=== PATIENT | female | born 1960 | race Two or more races ===

== ENCOUNTER 2022-07-04 14:41 | Emergency (ER) | payer MEDICARE | END 2022-07-04 18:05 | disposition left against medical advice (07) | LOC: MW.ED 14:41 | DX: Z53.21 Procedure and treatment not carried out due to patient leaving prior to being seen by health care provider (principal) ==

== ENCOUNTER 2023-02-09 14:50 | Observation (INO) | payer MEDICARE, MEDICAID ==
[2023-02-09] MEDS ORDERED: Sodium Chloride 0.9% 2.5 ML Syringe FLUSH PRN (15:18)
[2023-02-09] MEDS ORDERED: Sodium Chloride 0.9% 10 ML Syringe FLUSH PRN (15:18)
[2023-02-09 15:55] LABS: APPEARANCE,URINE CLEAR; BILIRUBIN,URINE NEGATIVE (NEGATIVE); COLOR,URINE YELLOW; GLUCOSE,URINE NEGATIVE (NEGATIVE); KETONES,URINE NEGATIVE (NEGATIVE); LEUKOCYTE ESTERASE,URINE SMALL (NEGATIVE); NITRITE,URINE NEGATIVE (NEGATIVE); OCCULT BLOOD,URINE NEGATIVE (NEGATIVE); PH,URINE 6.5 (5.0-8.0); PROTEIN,URINE NEGATIVE (NEGATIVE); UROBILINOGEN,URINE 0.2 EU/dL (<2.0)
[2023-02-09 16:04] LABS: AMPHETAMINES SCREEN, URINE NEGATIVE (CUTOFF=500); BARBITURATE SCREEN,URINE NEGATIVE (CUTOFF=200); BENZODIAZEPINES SCREEN,URINE NEGATIVE (CUTOFF=150); BUPRENORPHINE SCREEN,URINE NEGATIVE (CUTOFF=10); METHADONE SCREEN, URINE NEGATIVE (CUTOFF=200); METHAMPHETAMINES SCREEN, URINE NEGATIVE (CUTOFF=500); OXYCODONE SCREEN,URINE NEGATIVE (CUT0FF=100); PCP SCREEN,URINE NEGATIVE (CUTOFF=25); PROPOXYPHENE SCREEN,URINE NEGATIVE (CUTOFF=300); THC SCREEN,URINE 20 NG/ML NEGATIVE (CUTOFF=50)
[2023-02-09 16:13] LABS: BACTERIA,URINE NOT SEEN (NEGATIVE); EPITHELIAL CELLS,URINE FEW (NONE-FEW); RBC,URINE 0-1 (0-2/HPF); WBC,URINE 0-1 (0-5/HPF)
[2023-02-09 16:24] LABS: BASOPHILS ABSOLUTE AUTO 0.1 K/uL (0.0-0.1); BASOPHILS PERCENT AUTO 1.1 % (0.0-1.5); EOSINOPHILS ABSOLUTE AUTO 0.1 K/uL (0.0-0.7); EOSINOPHILS PERCENT AUTO 1.1 % (0.0-7.0); HEMATOCRIT 43.3 % (36.0-46.0); HEMOGLOBIN 14.5 g/dL (12.0-16.0); LYMPHOCYTES ABSOLUTE AUTO 1.6 K/uL (0.6-2.4); LYMPHOCYTES PERCENT AUTO 33.3 % (16.0-40.0); MEAN CORPUSCULAR HEMOGLOBIN 30.7 pg (27.0-32.0); MEAN CORPUSCULAR HGB CONC 33.5 g/dL (31.0-37.0); MEAN CORPUSCULAR VOLUME 91.5 fL (80.0-98.0); MONOCYTES ABSOLUTE AUTO 0.2 K/uL (0.0-0.8); MONOCYTES PERCENT AUTO 4.9 % (0.0-15.0); NEUTROPHILS ABSOLUTE AUTO 2.8 K/uL (1.4-5.7); NEUTROPHILS PERCENT AUTO 59.6 % (48.0-80.0); NRBC ABSOLUTE 0 K/uL; PLATELET COUNT,PLT 175 K/uL (150-400); RED BLOOD CELL COUNT 4.73 M/uL (4.30-5.90); WHITE BLOOD CELL COUNT,WBC 4.74 K/uL (4.0-11.0)
[2023-02-09 16:34] LABS: INR < 0.93 (0.86-1.11)
[2023-02-09 16:58] LABS: A/G RATIO 1.1 (0.9-1.6); ALANINE AMINOTRANSFERASE,ALT 25 IU/L (14-63); ALBUMIN 3.7 g/dL (3.4-5.0); ALKALINE PHOSPHATASE 109 U/L (46-116); ASPARTATE AMNIOTRANSFERASE,AST 19 IU/L (15-37); BILIRUBIN TOTAL 0.2 mg/dL (0.2-1.0); BLOOD UREA NITROGEN,BUN 12 mg/dL (7.0-18.0); CARBON DIOXIDE,CO2 29.2 mmol/L (21.0-32.0); CHLORIDE,CL 105 mmol/L (98-107); CREATININE 0.7 mg/dL (0.6-1.0); EST CRCL DRUG DOSING (CG) 66.75 mL/min; GLUCOSE RANDOM 96 mg/dL (74-106); POTASSIUM,K 4.1 mmol/L (3.5-5.1); SODIUM,NA 143 mmol/L (136-145)
[2023-02-09 17:00] LABS: ESTIMATED GFR 98 mL/min (>60); ETHANOL BLOOD MEDICAL < 3.0 mg/dL
[2023-02-09 17:04] LABS: LACTIC ACID 1.5 mmol/L (0.4-2.0)
[2023-02-09] MEDS ORDERED: Iopamidol 755 Mg/ML 100 ML Bottle IVPUSH ONE (17:54)
[2023-02-09] MEDS ORDERED: Divalproex Sodium Delayed-Release 500 MG Tab.CR PO ONE (18:32)
[2023-02-09] MEDS ORDERED: traMADol 50 MG Tab PO ONE (21:29)
[2023-02-10] MEDS ORDERED: Acetaminophen 325 MG Tab PO PRN (00:27)
[2023-02-10 05:58] LABS: BASOPHILS PERCENT AUTO 0.5 % (0.0-1.5); EOSINOPHILS ABSOLUTE AUTO 0.1 K/uL (0.0-0.7); HEMATOCRIT 39.4 % (36.0-46.0); HEMOGLOBIN 13.1 g/dL (12.0-16.0); LYMPHOCYTES ABSOLUTE AUTO 2.5 K/uL (0.6-2.4); LYMPHOCYTES PERCENT AUTO 44.6 % (16.0-40.0); MEAN CORPUSCULAR HEMOGLOBIN 30.6 pg (27.0-32.0); MEAN CORPUSCULAR HGB CONC 33.2 g/dL (31.0-37.0); MEAN CORPUSCULAR VOLUME 92.1 fL (80.0-98.0); MONOCYTES ABSOLUTE AUTO 0.3 K/uL (0.0-0.8); MONOCYTES PERCENT AUTO 5.2 % (0.0-15.0); NEUTROPHILS ABSOLUTE AUTO 2.7 K/uL (1.4-5.7); NEUTROPHILS PERCENT AUTO 47.7 % (48.0-80.0); NRBC ABSOLUTE 0 K/uL; PLATELET COUNT,PLT 169 K/uL (150-400); RED BLOOD CELL COUNT 4.28 M/uL (4.30-5.90); WHITE BLOOD CELL COUNT,WBC 5.56 K/uL (4.0-11.0)
[2023-02-10 06:31] LABS: CALCIUM 8.3 mg/dL (8.5-10.1); CARBON DIOXIDE,CO2 30.3 mmol/L (21.0-32.0); CREATININE 0.8 mg/dL (0.6-1.0); EST CRCL DRUG DOSING (CG) 58.41 mL/min
[2023-02-10] MEDS ORDERED: Divalproex Sodium Delayed-Release 250 MG Tab.CR PO SCH (09:00)
== END 2023-02-10 11:45 | disposition home or self-care (01) ==
LOC: MW.ED 14:50 → MW.MS 19:29
PROVIDERS: ADMIT Internal Medicine; ATTEND Internal Medicine
DX: H54.62 Unqualified visual loss, left eye, normal vision right eye (principal); R56.9 Unspecified convulsions; Z79.899 Other long term (current) drug therapy; Z98.890 Other specified postprocedural states
CPT/HCPCS: 36415; 70450; 70496; 70498; 70551; 71045; 80048; 80053; 80164; 80305; 80307; 81001; 83605; 84484; 85025; 85610; A9270; J3490; Q9967; 93005; 93010; 99284; G0378

== ENCOUNTER 2023-02-12 15:32 | Emergency (ER) | payer MEDICAID, MEDICARE ==
[2023-02-12] MEDS ORDERED: Sodium Chloride 0.9% 10 ML Syringe FLUSH PRN (15:33)
[2023-02-12] MEDS ORDERED: Sodium Chloride 0.9% 2.5 ML Syringe FLUSH PRN (15:33)
[2023-02-12] MEDS ORDERED: Ketorolac 30 MG/ML SDV IVPUSH ONE (15:55)
[2023-02-12 16:02] LABS: BASOPHILS PERCENT AUTO 0.8 % (0.0-1.5); EOSINOPHILS ABSOLUTE AUTO 0.1 K/uL (0.0-0.7); EOSINOPHILS PERCENT AUTO 1.2 % (0.0-7.0); HEMATOCRIT 42.6 % (36.0-46.0); HEMOGLOBIN 14.3 g/dL (12.0-16.0); LYMPHOCYTES ABSOLUTE AUTO 1.6 K/uL (0.6-2.4); LYMPHOCYTES PERCENT AUTO 32.9 % (16.0-40.0); MEAN CORPUSCULAR HEMOGLOBIN 30.9 pg (27.0-32.0); MEAN CORPUSCULAR HGB CONC 33.6 g/dL (31.0-37.0); MONOCYTES ABSOLUTE AUTO 0.3 K/uL (0.0-0.8); MONOCYTES PERCENT AUTO 6.9 % (0.0-15.0); NEUTROPHILS ABSOLUTE AUTO 2.9 K/uL (1.4-5.7); NEUTROPHILS PERCENT AUTO 58.2 % (48.0-80.0); NRBC ABSOLUTE 0 K/uL; PLATELET COUNT,PLT 179 K/uL (150-400); RED BLOOD CELL COUNT 4.63 M/uL (4.30-5.90); WHITE BLOOD CELL COUNT,WBC 4.93 K/uL (4.0-11.0)
[2023-02-12 16:28] LABS: A/G RATIO 1.1 (0.9-1.6); ALBUMIN 3.5 g/dL (3.4-5.0); BILIRUBIN TOTAL 0.2 mg/dL (0.2-1.0); CALCIUM 8.7 mg/dL (8.5-10.1); CARBON DIOXIDE,CO2 29.1 mmol/L (21.0-32.0); CREATININE 0.6 mg/dL (0.6-1.0); EST CRCL DRUG DOSING (CG) 77.88 mL/min; POTASSIUM,K 4.1 mmol/L (3.5-5.1); PROTEIN TOTAL,TP 6.7 g/dL (6.4-8.2)
== END 2023-02-12 18:33 | disposition home or self-care (01) ==
LOC: MW.ED 15:32
DX: R07.9 Chest pain, unspecified (principal); R56.9 Unspecified convulsions; Z79.899 Other long term (current) drug therapy
CPT/HCPCS: 36415; 71045; 80053; 84484; 85025; 93005; 96374; 99285; J1885; J3490; 93010

== ENCOUNTER 2024-05-26 11:34 | Emergency (ER) | payer MEDICAID, MEDICARE ==
[2024-05-26 12:15] LABS: COLOR,URINE YELLOW; GLUCOSE,URINE NEGATIVE (NEGATIVE); KETONES,URINE TRACE mg/dL (NEGATIVE); LEUKOCYTE ESTERASE,URINE NEGATIVE (NEGATIVE); NITRITE,URINE POSITIVE (NEGATIVE); OCCULT BLOOD,URINE NEGATIVE (NEGATIVE); PROTEIN,URINE NEGATIVE (NEGATIVE); UROBILINOGEN,URINE 0.2 EU/dL (<2.0)
[2024-05-26 12:22] LABS: BILIRUBIN,URINE SMALL (NEGATIVE)
[2024-05-26 12:23] LABS: APPEARANCE,URINE SLT CLOUDY
[2024-05-26] MEDS: Sodium Chloride 0.9% 1,000 ML IV ONE (12:30)
[2024-05-26] MEDS: Ondansetron 4 MG/2 ML SDV IVPUSH ONE (12:30)
[2024-05-26] MEDS: Alum Hydrox/Mag Hydrox/Simeth 15 ML, Metoclopramide 5 MG, Lidocaine 2% 5 ML PO ONE (12:30)
[2024-05-26 12:33] LABS: BASOPHILS ABSOLUTE AUTO 0.05 K/uL (0.00-0.20); BASOPHILS PERCENT AUTO 0.9 % (0.0-1.0); EOSINOPHILS ABSOLUTE AUTO 0.03 K/uL (0.00-0.45); EOSINOPHILS PERCENT AUTO 0.6 % (0.0-6.0); HEMATOCRIT 45.1 % (37.0-47.0); HEMOGLOBIN 15.2 g/dL (12.0-16.0); IMMATURE GRAN ABSOLUTE AUTO 0.02 K/uL (0.00-0.05); IMMATURE GRAN PERCENT AUTO 0.4 % (0.0-0.4); LYMPHOCYTES ABSOLUTE AUTO 1.47 K/uL (1.00-4.80); LYMPHOCYTES PERCENT AUTO 27.5 % (24.0-44.0); MEAN CORPUSCULAR HEMOGLOBIN 30.4 pg (28.0-32.0); MEAN CORPUSCULAR HGB CONC 33.7 g/dL (32.0-36.0); MEAN CORPUSCULAR VOLUME 90.2 fL (83.0-99.0); MEAN PLATELET VOLUME 11.3 fL (9.4-12.3); MONOCYTES PERCENT AUTO 5.6 % (0.0-8.0); NEUTROPHILS ABSOLUTE AUTO 3.47 K/uL (1.80-7.70); PLATELET COUNT,PLT 182 K/uL (150-400); WHITE BLOOD CELL COUNT,WBC 5.34 K/uL (3.9-11.3)
[2024-05-26 12:34] LABS: BACTERIA,URINE 1+ (NEGATIVE); EPITHELIAL CELLS,URINE RARE (NONE-FEW); MUCUS,URINE MODERATE (NONE-MOD)
[2024-05-26 12:55] LABS: A/G RATIO 1.3 (0.9-1.6); ALBUMIN 4.1 g/dL (3.4-5.0); BILIRUBIN TOTAL 0.5 mg/dL (0.2-1.0); CALCIUM 9.6 mg/dL (8.5-10.1); CARBON DIOXIDE,CO2 31.7 mmol/L (21.0-32.0); CREATININE 0.9 mg/dL (0.6-1.0); EST CRCL DRUG DOSING (CG) 51.26 mL/min; POTASSIUM,K 4.4 mmol/L (3.5-5.1); PROTEIN TOTAL,TP 7.2 g/dL (6.4-8.2)
[2024-05-26] MEDS: Sulfamethoxazole/Trimethoprim 800-160 MG Tab PO ONE (13:05)
== END 2024-05-26 13:18 | disposition home or self-care (01) ==
LOC: MW.ED 11:34
DX: K21.9 Gastro-esophageal reflux disease without esophagitis (principal); N39.0 Urinary tract infection, site not specified; Z79.899 Other long term (current) drug therapy; Z75.8 Other problems related to medical facilities and other health care
CPT/HCPCS: 36415; 80053; 81001; 83690; 85025; 87086; 96361; 96374; 99284; A9270; J2405; J7030

== ENCOUNTER 2024-06-17 23:31 | Emergency (ER) | payer MEDICARE ==
[2024-06-18] MEDS: Lidocaine 4% 1 each Patch TOP ONE (00:13)
[2024-06-18] MEDS: Diazepam 5 MG Tab PO ONE (00:13)
[2024-06-18 00:56] LABS: APPEARANCE,URINE CLEAR; BILIRUBIN,URINE NEGATIVE (NEGATIVE); COLOR,URINE YELLOW; GLUCOSE,URINE NEGATIVE (NEGATIVE); KETONES,URINE NEGATIVE (NEGATIVE); LEUKOCYTE ESTERASE,URINE NEGATIVE (NEGATIVE); NITRITE,URINE NEGATIVE (NEGATIVE); OCCULT BLOOD,URINE TRACE-LYSED (NEGATIVE); PH,URINE 6.5 (5.0-8.0); PROTEIN,URINE NEGATIVE (NEGATIVE); UROBILINOGEN,URINE 0.2 EU/dL (<2.0)
[2024-06-18 01:05] LABS: BACTERIA,URINE RARE (NEGATIVE); CALCIUM OXALATE CRYSTALS,URINE MODERATE (NEGATIVE); EPITHELIAL CELLS,URINE RARE (NONE-FEW); MUCUS,URINE LIGHT (NONE-MOD); RBC,URINE 0-2 (0-2/HPF); WBC,URINE NONE SEEN (0-5/HPF)
[2024-06-18 01:40] LABS: BASOPHILS ABSOLUTE AUTO 0.05 K/uL (0.00-0.20); BASOPHILS PERCENT AUTO 0.7 % (0.0-1.0); EOSINOPHILS ABSOLUTE AUTO 0.08 K/uL (0.00-0.45); EOSINOPHILS PERCENT AUTO 1.1 % (0.0-6.0); HEMATOCRIT 40.3 % (37.0-47.0); HEMOGLOBIN 13.5 g/dL (12.0-16.0); IMMATURE GRAN ABSOLUTE AUTO 0.02 K/uL (0.00-0.05); IMMATURE GRAN PERCENT AUTO 0.3 % (0.0-0.4); LYMPHOCYTES ABSOLUTE AUTO 1.59 K/uL (1.00-4.80); LYMPHOCYTES PERCENT AUTO 22.6 % (24.0-44.0); MEAN CORPUSCULAR HEMOGLOBIN 30.4 pg (28.0-32.0); MEAN CORPUSCULAR HGB CONC 33.5 g/dL (32.0-36.0); MEAN CORPUSCULAR VOLUME 90.8 fL (83.0-99.0); MEAN PLATELET VOLUME 11.6 fL (9.4-12.3); MONOCYTES PERCENT AUTO 5.7 % (0.0-8.0); NEUTROPHILS ABSOLUTE AUTO 4.89 K/uL (1.80-7.70); NEUTROPHILS PERCENT AUTO 69.6 % (41.0-71.0); PLATELET COUNT,PLT 175 K/uL (150-400); RED BLOOD CELL COUNT 4.44 M/uL (4.10-5.30); WHITE BLOOD CELL COUNT,WBC 7.03 K/uL (3.9-11.3)
[2024-06-18 02:14] LABS: A/G RATIO 1.2 (0.9-1.6); ALBUMIN 3.5 g/dL (3.4-5.0); BILIRUBIN TOTAL 0.3 mg/dL (0.2-1.0); CALCIUM 9.1 mg/dL (8.5-10.1); CARBON DIOXIDE,CO2 28.6 mmol/L (21.0-32.0); CREATININE 0.8 mg/dL (0.6-1.0); EST CRCL DRUG DOSING (CG) 57.67 mL/min; POTASSIUM,K 3.6 mmol/L (3.5-5.1); PROTEIN TOTAL,TP 6.4 g/dL (6.4-8.2)
[2024-06-18] MEDS: Morphine 4 MG/ML Syringe IVPUSH ONE (02:39)
[2024-06-18] MEDS: Acetaminophen/HYDROcodone 325-5 MG Tab PO ONE (03:39)
== END 2024-06-18 03:40 | disposition home or self-care (01) ==
LOC: MW.ED 23:31
DX: R10.32 Left lower quadrant pain (principal)
CPT/HCPCS: 36415; 76770; 80053; 81001; 85025; 96374; 99285; A9270; J2270

== ENCOUNTER 2024-06-21 12:45 | Emergency (ER) | payer MEDICARE ==
[2024-06-21] MEDS ORDERED: Sodium Chloride 0.9% 10 ML Syringe FLUSH PRN (13:39)
[2024-06-21] MEDS ORDERED: Sodium Chloride 0.9% 2.5 ML Syringe FLUSH PRN (13:39)
[2024-06-21] MEDS: Morphine 4 MG/ML Syringe IVPUSH ONE (13:53)
[2024-06-21] MEDS: Ondansetron 4 MG/2 ML SDV IVPUSH ONE (13:53)
[2024-06-21] MEDS: Sodium Chloride 0.9% 1,000 ML IV ONE (13:53)
[2024-06-21 13:54] LABS: BASOPHILS ABSOLUTE AUTO 0.04 K/uL (0.00-0.20); BASOPHILS PERCENT AUTO 0.7 % (0.0-1.0); EOSINOPHILS ABSOLUTE AUTO 0.08 K/uL (0.00-0.45); EOSINOPHILS PERCENT AUTO 1.4 % (0.0-6.0); HEMATOCRIT 43.7 % (37.0-47.0); HEMOGLOBIN 14.9 g/dL (12.0-16.0); IMMATURE GRAN ABSOLUTE AUTO 0.02 K/uL (0.00-0.05); IMMATURE GRAN PERCENT AUTO 0.3 % (0.0-0.4); LYMPHOCYTES ABSOLUTE AUTO 1.51 K/uL (1.00-4.80); LYMPHOCYTES PERCENT AUTO 25.9 % (24.0-44.0); MEAN CORPUSCULAR HEMOGLOBIN 30.1 pg (28.0-32.0); MEAN CORPUSCULAR HGB CONC 34.1 g/dL (32.0-36.0); MEAN CORPUSCULAR VOLUME 88.3 fL (83.0-99.0); MEAN PLATELET VOLUME 11.4 fL (9.4-12.3); MONOCYTES ABSOLUTE AUTO 0.38 K/uL (0.00-0.80); MONOCYTES PERCENT AUTO 6.5 % (0.0-8.0); NEUTROPHILS ABSOLUTE AUTO 3.81 K/uL (1.80-7.70); NEUTROPHILS PERCENT AUTO 65.2 % (41.0-71.0); PLATELET COUNT,PLT 192 K/uL (150-400); RED BLOOD CELL COUNT 4.95 M/uL (4.10-5.30); WHITE BLOOD CELL COUNT,WBC 5.84 K/uL (3.9-11.3)
[2024-06-21 14:01] LABS: APPEARANCE,URINE CLEAR; BILIRUBIN,URINE NEGATIVE (NEGATIVE); COLOR,URINE YELLOW; GLUCOSE,URINE NEGATIVE (NEGATIVE); KETONES,URINE NEGATIVE (NEGATIVE); LEUKOCYTE ESTERASE,URINE NEGATIVE (NEGATIVE); NITRITE,URINE NEGATIVE (NEGATIVE); OCCULT BLOOD,URINE TRACE-INTACT (NEGATIVE); PROTEIN,URINE NEGATIVE (NEGATIVE); UROBILINOGEN,URINE 0.2 EU/dL (<2.0)
[2024-06-21 14:09] LABS: RBC,URINE 0-2 (0-2/HPF)
[2024-06-21 14:10] LABS: BACTERIA,URINE FEW (NEGATIVE); EPITHELIAL CELLS,URINE OCCASIONAL (NONE-FEW); WBC,URINE 0-3 (0-5/HPF)
[2024-06-21 14:26] LABS: ALBUMIN 3.2 g/dL (3.4-5.0); BILIRUBIN TOTAL 0.2 mg/dL (0.2-1.0); CALCIUM 9.2 mg/dL (8.5-10.1); CARBON DIOXIDE,CO2 25.3 mmol/L (21.0-32.0); CREATININE 0.7 mg/dL (0.6-1.0); EST CRCL DRUG DOSING (CG) 65.9 mL/min; MAGNESIUM 1.9 mg/dL (1.8-2.4); POTASSIUM,K 4.5 mmol/L (3.5-5.1); PROTEIN TOTAL,TP 6.5 g/dL (6.4-8.2)
[2024-06-21] MEDS: Iopamidol 755 MG/ML 500 ML Multipack Bottle IVPUSH STA (15:33)
[2024-06-21] MEDS: Lidocaine 4% 1 each Patch TOP STA (16:11)
== END 2024-06-21 16:45 | disposition home or self-care (01) ==
LOC: MW.ED 12:45
DX: N20.0 Calculus of kidney (principal); N28.1 Cyst of kidney, acquired; E27.9 Disorder of adrenal gland, unspecified; Z79.899 Other long term (current) drug therapy; Z75.8 Other problems related to medical facilities and other health care
CPT/HCPCS: 36415; 74177; 80053; 81001; 83735; 85025; 96361; 96374; 96375; 99284; A9270; J2270; J2405; J7030; Q9967

== ENCOUNTER 2025-02-04 11:11 | Emergency (ER) | payer MEDICARE ==
[2025-02-04 11:29] LABS: APPEARANCE,URINE SLT CLOUDY; GLUCOSE,URINE NEGATIVE (NEGATIVE); OCCULT BLOOD,URINE TRACE-INTACT (NEGATIVE)
[2025-02-04 11:57] LABS: EPITHELIAL CELLS,URINE OCCASIONAL (NONE-FEW)
== END 2025-02-04 12:46 | disposition home or self-care (01) ==
LOC: MW.ED 11:11
DX: N39.0 Urinary tract infection, site not specified (principal); Z79.899 Other long term (current) drug therapy
CPT/HCPCS: 81001; 87086; 99283